=== PATIENT | female | born 1990 | race American Indian/Alaskan Native ===

== ENCOUNTER 2021-09-10 07:58 | Emergency (ER) | payer SELFPAY ==
[2021-09-10] MEDS ORDERED: LIDOCAINE-MPF (1%) 10 MG/1 ML VIAL 5 ML INFILTRATI ONE (08:26)
[2021-09-10] MEDS ORDERED: dexAMETHasone 4 MG/ML VIAL IV ONE (08:26)
--- NOTE | 2021-09-10 08:27 | Emergency Department Report ---
ED ENT HPI - General Chief complaint: Dental/Oral Stated complaint: PAIN/SWOLLEN LEFT SIDE OF FACE Time Seen by Provider: 09/10/21 08:25 Source: patient Mode of arrival: Ambulatory Limitations: No Limitations - History of Present Illness Initial comments: Patient is a 30-year-old female that comes to the ER with left upper dental pain and associated facial swelling. She has no trismus. No Ludewig's. No abscess. She is controlling secretions. She is taking p.o. She has taken nothing prior to arrival in the ER for the pain. She has not seen a dentist. MD complaint: tooth pain -: Gradual, days(s) Severity: moderate Severity scale (0 -10): 4 Quality: aching Consistency: constant Worsens with: none Associated Symptoms: toothache - Related Data Previous Rx's Medication Instructions Recorded Last Taken Type Amoxicillin/K Clav Tab [Augmentin 1 tab PO Q12HR #20 tab 02/14/16 Unknown Rx 875 mg] Azelastine 0.1% (Nf) [Astelin (Nf)] 137 mcg NS QDAY #1 bottle 02/14/16 Unknown Rx Fluticasone [Flonase] 1 spray NS QDAY #1 bottle 02/14/16 Unknown Rx Hydrocortisone 1% [Hydrocortisone 1 applicatio TP BID #1 tube 02/14/16 Unknown Rx 1% CREAM] Ibuprofen [Motrin] 600 mg PO Q8H PRN #20 tablet 02/14/16 Unknown Rx predniSONE [Deltasone] 40 mg PO QDAY #10 tab 02/14/16 Unknown Rx Amoxicillin [Trimox CAP] 500 mg PO BID #20 capsule 09/10/21 Unknown Rx Ibuprofen [Motrin] 800 mg PO Q8HR PRN #30 tablet 09/10/21 Unknown Rx Allergies Allergy/AdvReac Type Severity Reaction Status Date / Time No Known Allergies Allergy Verified 02/14/16 19:50 ED Dental HPI - General Chief complaint: Dental/Oral Stated complaint: PAIN/SWOLLEN LEFT SIDE OF FACE Time Seen by Provider: 09/10/21 08:25 Source: patient Mode of arrival: Ambulatory Limitations: No Limitations - Related Data Previous Rx's Medication Instructions Recorded Last Taken Type Amoxicillin/K Clav Tab [Augmentin 1 tab PO Q12HR #20 tab 02/14/16 Unknown Rx 875 mg] Azelastine 0.1% (Nf) [Astelin (Nf)] 137 mcg NS QDAY #1 bottle 02/14/16 Unknown Rx Fluticasone [Flonase] 1 spray NS QDAY #1 bottle 02/14/16 Unknown Rx Hydrocortisone 1% [Hydrocortisone 1 applicatio TP BID #1 tube 02/14/16 Unknown Rx 1% CREAM] Ibuprofen [Motrin] 600 mg PO Q8H PRN #20 tablet 02/14/16 Unknown Rx predniSONE [Deltasone] 40 mg PO QDAY #10 tab 02/14/16 Unknown Rx Amoxicillin [Trimox CAP] 500 mg PO BID #20 capsule 09/10/21 Unknown Rx Ibuprofen [Motrin] 800 mg PO Q8HR PRN #30 tablet 09/10/21 Unknown Rx Allergies Allergy/AdvReac Type Severity Reaction Status Date / Time No Known Allergies Allergy Verified 02/14/16 19:50 ED Review of Systems ROS: Stated complaint: PAIN/SWOLLEN LEFT SIDE OF FACE Other details as noted in HPI Comment: All other systems reviewed and negative ED Past Medical Hx - Past Medical History Previous Medical History?: Yes Hx Hypertension: Yes Additional medical history: FIBERCYSTIC BREAST DISEASE - Surgical History Past Surgical History?: No - Family History Family history: no significant - Social History Smoking Status: Never Smoker Substance Use Type: None - Medications Home Medications: Home Medications Medication Instructions Recorded Confirmed Last Taken Type Amoxicillin/K Clav Tab [Augmentin 1 tab PO Q12HR #20 tab 02/14/16 Unknown Rx 875 mg] Azelastine 0.1% (Nf) [Astelin (Nf)] 137 mcg NS QDAY #1 bottle 02/14/16 Unknown Rx Fluticasone [Flonase] 1 spray NS QDAY #1 bottle 02/14/16 Unknown Rx Hydrocortisone 1% [Hydrocortisone 1 applicatio TP BID #1 tube 02/14/16 Unknown Rx 1% CREAM] Ibuprofen [Motrin] 600 mg PO Q8H PRN #20 tablet 02/14/16 Unknown Rx predniSONE [Deltasone] 40 mg PO QDAY #10 tab 02/14/16 Unknown Rx Amoxicillin [Trimox CAP] 500 mg PO BID #20 capsule 09/10/21 Unknown Rx Ibuprofen [Motrin] 800 mg PO Q8HR PRN #30 tablet 09/10/21 Unknown Rx ED Physical Exam - General Limitations: No Limitations General appearance: alert, in no apparent distress - Head Head exam: Present: atraumatic, normocephalic - Eye Eye exam: Present: normal appearance - ENT ENT exam: Present: mucous membranes moist - Expanded ENT Exam Expanded Ear exam: Present: normal external inspection Teeth exam: Present: dental caries 1 - Other (Caries, mild left-sided facial swelling.) - Neck Neck exam: Present: normal inspection - Respiratory Respiratory exam: Present: normal lung sounds bilaterally. Absent: respiratory distress - Cardiovascular Cardiovascular Exam: Present: regular rate, normal rhythm. Absent: systolic murmur, diastolic murmur, rubs, gallop - GI/Abdominal GI/Abdominal exam: Present: soft, normal bowel sounds - Extremities Exam Extremities exam: Present: normal inspection - Back Exam Back exam: Present: normal inspection - Neurological Exam Neurological exam: Present: alert, oriented X3 - Psychiatric Psychiatric exam: Present: normal affect, normal mood - Skin Skin exam: Present: warm, dry, intact, normal color. Absent: rash ED Course Vital Signs 09/10/21 09/10/21 08:09 08:45 Temperature 99.1 F 98.2 F Pulse Rate 101 H 85 Respiratory 14 16 Rate Blood Pressure 161/91 Blood Pressure 133/86 [Left] O2 Sat by Pulse 100 100 Oximetry ED Medical Decision Making - Medical Decision Making Left molar dental caries noted. Vital Signs 09/10/21 09/10/21 08:09 08:45 Temperature 99.1 F 98.2 F Pulse Rate 101 H 85 Respiratory 14 16 Rate Blood Pressure 161/91 Blood Pressure 133/86 [Left] O2 Sat by Pulse 100 100 Oximetry Patient taking p.o. with no difficulty Patient being discharged home with discharge plan of care including diet, activity, medications and follow-up. She verbalizes understanding of plan of care. - Differential Diagnosis Dental caries Critical care attestation.: If time is entered above; I have spent that time in minutes in the direct care of this critically ill patient, excluding procedure time. ED Disposition Clinical Impression: Pain, dental Disposition: 01 HOME / SELF CARE / HOMELESS Is pt being admited?: No Does the pt Need Aspirin: No Condition: Stable Additional Instructions: MEDS ORDERED TODAY UNTIL GONE TYLENOL CAN ALSO BE USED FOR PAIN REFERRAL TO DENTIST BELOW SEE THEM JENNIFER Prescriptions: Ibuprofen [Motrin] 800 mg PO Q8HR PRN #30 tablet PRN Reason: Pain, Moderate (4-6) Amoxicillin [Trimox CAP] 500 mg PO BID #20 capsule Referrals: PRIMARY CARE, [Primary Care Provider] - 3-5 Days [facility] [Outside] - 3-5 Days [facility] [Outside] - 3-5 Days Forms: Work/School Release Form(ED) Time of Disposition: 08:26
[2021-09-10 08:56] VITALS: BP 133/86
== END 2021-09-10 08:56 | disposition home or self-care (01) ==
LOC: ED 07:58
DX: K08.89 Other specified disorders of teeth and supporting structures (principal); I10 Essential (primary) hypertension
CPT/HCPCS: 96372; 96374; 99282; J0696; J1100; J3490